=== PATIENT | male | born 1980 | race Caucasian/White ===

== ENCOUNTER 2018-03-29 17:21 | Emergency (ER) | payer MEDICAID ==
--- NOTE | 2018-03-29 18:11 | Emergency Department Record ---
History of Present Illness - General Chief complaint: Extremity Problem Stated complaint: PAIN AND SWELLING IN LEFT FOOT Time Seen by Provider: 03/29/18 17:47 Source: Patient Mode of Arrival: Ambulatory Limitations: No limitations - History of Present Illness Initial comments: The patient is here due to worsening of his L foot chronic pain. He has had pain for about 8 months and has been going to [facility] frequently for it. He was there 2 weeks ago and was placed on an oral Abx. He also states he was there 2 nights ago and was not given any new medicines. Over the last few days the L foot has become more painful, swollen, and erythematous. He denies any trauma or injury. MD Complaint: Extremity pain Onset/Timin -: Month(s) Location: Left, Foot History of Same: Yes Severity scale (1-10): 10 Improves with: Nothing Worsens with: Palpation, Weight bearing Associated Symptoms: Denies other symptoms - Related Data Home Medications Medication Instructions Recorded Confirmed Last Taken Sulfamethoxazole/Trimethoprim 1 tab PO BID 03/29/18 03/29/18 03/29/18 [Sulfamethoxazole-Tmp Ds Tablet] Allergies Allergy/AdvReac Type Severity Reaction Status Date / Time No Known Allergies Allergy PT UNSURE Verified 03/29/18 17:44 OF REACTION Travel Screening - Travel/Exposure Within Last 30 Days Have you traveled within the last 30 days?: No - Travel/Exposure Within Last Year Have you traveled outside the [place] in the last year?: No - Additonal Travel Details Have you been exposed to anyone with a communicable illness?: No - Travel Symptoms Symptom Screening: None Review of Systems Constitutional: Denies: Chills, Fever Eyes: Denies: Eye discharge ENT: Denies: Throat pain Respiratory: Denies: Cough, Dyspnea Past Medical History - SOCIAL HISTORY Smoking Status: Unknown if ever smoked Alcohol Use: None, Occasional Drug Use Detail:: Marijuana, Methamphetamine - RESPIRATORY Hx Respiratory Disorders: No - CARDIOVASCULAR Hx Cardio Disorders: No - NEURO Hx Neuro Disorders: No - GI Hx GI Disorders: No - Hx Genitourinary Disorders: No - ENDOCRINE Hx Endocrine Disorders: No - MUSCULOSKELETAL Hx Musculoskeletal Disorders: No - PSYCH Hx Psych Problems: No - HEMATOLOGY/ONCOLOGY Hx Hematology/Oncology Disorders: No Family Medical History Any Significant Family History?: No Physical Exam - General General Appearance: Alert, Oriented x3, Cooperative, Mild distress (due to anxiety and foot pain.) - Head Head exam: Atraumatic, Normocephalic - ENT Throat exam: Normal inspection. negative: Tonsillar erythema, Tonsillar exudate - Neck Neck exam: Normal inspection, Full ROM. negative: Tenderness - Respiratory Respiratory exam: Normal lung sounds bilaterally. negative: Respiratory distress - Cardiovascular Cardiovascular Exam: Regular rate, Normal rhythm, Normal heart sounds - GI/Abdominal GI/Abdominal exam: Soft, Normal bowel sounds. negative: Tenderness - Extremities Extremities exam: Joint swelling (L ankle.), Tenderness (There is diffuse tenderness to the L foot and ankle. ), Other (There are strong R foot pulses but the L foot has no palpable pulses. There is a very weak DP doppler signal only but no PT signal.). negative: Normal inspection (The L distal extremity is swollen and erythematous to the proximal ankle. The distal foot is cool to touch. ), Full ROM, Normal capillary refill, Pedal edema Course Vital Signs 03/29/18 17:46 Temperature 98 F Pulse Rate 88 Respiratory 20 Rate Blood Pressure 143/86 Pulse Ox 100 - Reevaluation(s) Reevaluation #1: I did explain to the patient the need for further evaluation including a vascular doppler test which I feel is emergently needed. Since we are not able to get it done here tonight the patient will need to be transferred to a larger ER. [place] [facility] [place] I did discuss the issues with Dr. Mendoza who did accept the patient in an ER to ER transfer. 03/29/18 19:12 Medical Decision Making - Data Complexity MDM Data: Labs Ordered and/or Reviewed, X-Ray Ordered and/or Reviewed - Lab Data Result diagrams: 03/29/18 18:00 03/29/18 18:00 - Radiology Data Radiology results: Image reviewed (L Foot: ST swelling, neg for any bony changes or soft tissue gas.) Disposition Disposition: Transfer Clinical Impression: Vascular insufficiency of extremity Disposition: Acute Care Hospital Transfer [place] [facility] [place] For Transfer: Vascular Accepting Physician: Kelly Time Discussed w/Accepting Physician: 19:14 Condition: (2) Stable Forms: Patient Portal Access Time of Disposition: 19:14 Quality - Quality Measures Quality Measures: N/A - Blood Pressure Screening View Details: Yes Does Patient Have Any of the Following: No Blood Pressure Classification: Pre-Hypertensive BP Reading Systolic Measurement: 128 Diastolic Measurement: 83 Screening for High Blood Pressure: < Pre-Hypertensive BP, F/U Documented > [ [id number]] Pre-Hypertensive Follow-up Interventions: Referral to alternative/primary care provider.
[2018-03-29 18:15] LABS: BASO % 0.4 % (0-6); GRAN % 53.1 % (47-80); HEMATOCRIT 46.8 % (42.0-52.0); HEMOGLOBIN 16.2 gm/dl (14.0-18.0); LYMPH % 35.2 % (16-45); MEAN CELL VOLUME 90.9 fl (81-97); MEAN CORPUSCULAR HEMOGLOBIN 31.5 pg (27-33); MEAN CORPUSCULAR HGB CONC 34.6 g/dl (32-36); MEAN PLATELET VOLUME 9.1 fl (7.4-10.4); MONO % 8.3 % (0-9); PLATELET COUNT 500 K/uL (130-400); RED BLOOD COUNT 5.15 M/uL (4.40-5.70); RED CELL DISTRIBUTION WIDTH 12.7 % (11.5-14.5); WHITE BLOOD COUNT W/O DIFF 7.9 K/uL (4.2-12.2)
[2018-03-29] MEDS ORDERED: 0.9 % SODIUM CHLORIDE 1,000 ML BAG IV ONE (18:27)
[2018-03-29 18:47] LABS: BLOOD UREA NITROGEN 12 mg/dL (6-20); GLUCOSE,RANDOM 82 mg/dL (74-109)
[2018-03-29 18:48] LABS: CREATININE 1.2 mg/dL (0.7-1.2); EST GLOMERULAR FILTRATION RATE > 60 mL/min
[2018-03-29] MEDS ORDERED: LORAZEPAM 2 MG/ML VIAL IV ONE (18:48)
[2018-03-29 18:51] LABS: ALBUMIN 5.1 g/dL (4.0-5.0); TOTAL PROTEIN 8.5 g/dL (6.6-8.7)
[2018-03-29 18:52] LABS: ALKALINE PHOSPHATASE 112 U/L (40-129); ALT/SGPT 19 U/L (<41); AST/SGOT 22 U/L (10.0-50.0); BILIRUBIN,DIRECT 0.2 mg/dL (0-0.3)
[2018-03-29] MEDS ORDERED: ONDANSETRON HCL IV 4 MG/2 ML VIAL IVP ONE (18:54)
[2018-03-29] MEDS ORDERED: HYDROMORPHONE HCL 2 MG/ML VIAL IVP ONE (18:54)
[2018-03-29] MEDS ORDERED: CEFTRIAXONE SODIUM 1 GM in 0.9 % SODIUM CHLORIDE 100ML 100 ML IVPB ONE (19:20)
--- NOTE | 2018-03-31 07:50 | RADIOLOGY REPORT ---
EXAM: FOOT, LEFT 3 VIEWS HISTORY: LEFT FOOT PAIN, SWELLING, AND DISCOLORATION SINCE PREVIOUS JUNE. TECHNIQUE: Three views of the left foot. COMPARISON: None. FINDINGS: Diffuse soft tissue swelling throughout the visualized foot. No fracture is detected. No appreciable dislocation. No radiopaque foreign bodies. No significant degenerative findings. IMPRESSION: DIFFUSE NONSPECIFIC SOFT TISSUE SWELLING THROUGHOUT THE FOOT. NO DEFINITE ACUTE OSSEOUS ABNORMALITIES. JOB NUMBER: [id number] MTDD
== END 2018-03-29 19:31 | disposition short-term general hospital (02) ==
LOC: ER 17:21
DX: I87.2 Venous insufficiency (chronic) (peripheral) (principal)
CPT/HCPCS: 99285 ×2; 96374; 96375; 96361; 83605; 85025; 80076; 86140; 80048; 73630; J2405; J1170; J2060; J7030